=== PATIENT | female | born 1940 | race Caucasian/White ===

== ENCOUNTER 2019-02-23 17:58 | Emergency (ER) | payer MEDICARE, OTHER ==
[2019-02-23 19:16] VITALS: BP 153/78
--- NOTE | 2019-02-23 19:29 | UC ---
Back Pain HPI - HPI Summary HPI Summary: 78 year old female presents with acute low back pain radiating down anterior left for the past two days. Symptoms started when she was putting down her 23# dog and twisted. She denies fall nor trauma. Pain worsened the next day when she when to put down her shampoo in the shower. Had similar symptoms 3-4 years ago. Took tramadol she had at home with slight relief of pain. - History of Current Complaint Chief Complaint: UCBackPain Stated Complaint: LOW BACK PAIN Time Seen by Provider: 02/23/19 19:19 Hx Obtained From: Patient Onset/Duration: Sudden Onset, Lasting Days - 2 days Timing: Constant Pain Intensity: 8 Back Pain: Is Discrete @, Radiates To - down right anterior thigh to knee. Character: Sharp Aggravating Factor(s): Movement Alleviating Factor(s): Other - slight relief from tramadol. Associated Signs And Symptoms: Negative: Swelling, Redness, Bruising, Fever, Weakness, Numbness, Tingling, Flank Pain, Bladder Incontinence, Bowel Incontinence Related History: Similar Episode Dx As - previous episode of sciatica years ago. - Risk Factors Cauda Equina Risk Factors: Negative Epidural Abscess Risk Factors: Negative - Allergies/Home Medications Allergies/Adverse Reactions: Allergies Allergy/AdvReac Type Severity Reaction Status Date / Time No Known Allergies Allergy Verified 02/23/19 19:04 Home Medications: Home Medications Alendronate Sodium 70 mg PO WEEKLY 02/23/19 [History Confirmed 02/23/19] Amlodipine Besylate [Norvasc] 5 mg PO DAILY 02/23/19 [History Confirmed 02/23/19 ] Losartan/Hydrochlorothiazide [Losartan-Hctz 100-12.5 mg Tab] 1 tab PO DAILY 09/12 [History Confirmed 02/23/19] Omeprazole 20 mg PO DAILY 02/23/19 [History Confirmed 02/23/19] Oxybutynin TAB* [Ditropan TAB*] 5 mg PO DAILY 02/23/19 [History Confirmed ] Simvastatin [Zocor] 40 mg PO DAILY 02/23/19 [History Confirmed 02/23/19] PMH/Surg Hx/FS Hx/Imm Hx Previously Healthy: Yes Endocrine History: Other - osteoporosis Cardiovascular History: Hypertension GI/ History: Gastroesophageal Reflux, Other - overactive bladder Cancer History: Breast Cancer - 1996-lumpectomy - Surgical History Surgical History: Yes Surgery Procedure, Year, and Place: 2013--hernia repain. 1996--left breast lumpectomy - Family History Known Family History: Positive: Non-Contributory - Social History Occupation: Retired Lives: Alone Alcohol Use: Rare Substance Use Type: None Smoking Status (MU): Never Smoked Tobacco Review of Systems All Other Systems Reviewed And Are Negative: Yes Constitutional: Negative: Fever, Chills, Fatigue Skin: Negative: Rash, Bruising ENT: Negative: Epistaxis, Sore Throat, Ear Ache, Nasal Discharge, Sinus Congestion Respiratory: Negative: Shortness Of Breath, Cough Cardiovascular: Negative: Palpitations, Chest Pain Gastrointestinal: Negative: Abdominal Pain, Vomiting, Diarrhea, Nausea Genitourinary: Negative: Dysuria, Hematuria, Frequency, Urgency Motor: Negative: Weakness Neurovascular: Negative: Decreased Sensation, Decreased Pulses Musculoskeletal: Negative: Calf Tenderness, Edema, Myalgia Neurological: Negative: Weakness, Paresthesia, Numbness Physical Exam Triage Information Reviewed: Yes Appearance: Well-Appearing, Pain Distress Vital Signs: Initial Vital Signs Temp 98.6 F 02/23/19 19:10 Pulse 67 02/23/19 19:10 Resp 15 02/23/19 19:10 BP 153/78 02/23/19 19:10 Pulse Ox 99 02/23/19 19:10 Vital Signs Reviewed: Yes Eyes: Positive: Conjunctiva Clear ENT: Positive: Normal ENT inspection Neck: Positive: Supple, Nontender, No Lymphadenopathy Respiratory: Positive: Lungs clear, Normal breath sounds. Negative: Crackles, Rhonchi, Wheezing Cardiovascular: Positive: RRR, No Murmur Abdomen Description: Positive: Nontender, Soft. Negative: Distended Musculoskeletal: Positive: Strength Intact, ROM Intact, Other: - pain with right strait leg lift radiating from right lower back into right lower thigh. Neurological: Positive: Alert, Muscle Tone Normal Skin: Negative: Rashes Diagnostics - Radiology No standard instances Radiology Interpretation Completed By: ED Physician Summary of Radiographic Findings: WET READ: NO ACUTE PROCESS, DEGENERATIVE CHANGES LUMBAR SPINE, NO FRACTURE. Back Pain Course/Dx - Differential Dx/Diagnosis Differential Diagnosis/HQI/PQRI: Osteoporosis Provider Diagnosis: Sciatica, right side Discharge - Sign-Out/Discharge Documenting (check all that apply): Patient Departure All imaging exams completed and their final reports reviewed: No - Radiologist review pending. - Discharge Plan Condition: Stable Disposition: HOME Prescriptions: Cyclobenzaprine HCl 5 mg PO BEDTIME PRN #10 tablet MDD ONE PRN Reason: Spasms Tramadol HCl 50 mg PO QID PRN #20 tablet MDD 4 tabs PRN Reason: Pain - Moderate Patient Education Materials: Sciatica (ED) Referrals: Ciara Valentine MD [Primary Care Provider] - Additional Instructions: Continue tramadol as needed for pain. Muscle relaxer at bedtime with caution for dizziness/sleepiness. Physical therapy to improve symptoms. Follow-up with primary care physician if symptoms persist or worsen. - Billing Disposition and Condition Condition: STABLE Disposition: Home
--- NOTE | 2019-02-24 08:38 | UC ---
- Progress Note Progress Note: Final x-ray report reviewed. Lumbar spine x-ray: The vertebra are in normal alignment. The bones are osteopenic. The vertebral body heights are maintained. No fracture is seen. There is mild multilevel degenerative disc disease and moderate facet arthropathy from L3-L4 through L5-S1. IMPRESSION: 1. No displaced fracture by radiograph. 2. Osteopenia. 3. Multilevel degenerative changes as above. This is consistent with a wet read No change in plan Course/Dx - Diagnoses Provider Diagnoses: Sciatica, right side Discharge - Sign-Out/Discharge Documenting (check all that apply): Post-Discharge Follow Up All imaging exams completed and their final reports reviewed: Yes - Radiologist review pending. - Discharge Plan Condition: Stable Disposition: HOME Prescriptions: Cyclobenzaprine HCl 5 mg PO BEDTIME PRN #10 tablet MDD ONE PRN Reason: Spasms Tramadol HCl 50 mg PO QID PRN #20 tablet MDD 4 tabs PRN Reason: Pain - Moderate Patient Education Materials: Sciatica (ED) Referrals: Ciara Valentine MD [Primary Care Provider] - Additional Instructions: Continue tramadol as needed for pain. Muscle relaxer at bedtime with caution for dizziness/sleepiness. Physical therapy to improve symptoms. Follow-up with primary care physician if symptoms persist or worsen. - Billing Disposition and Condition Condition: STABLE Disposition: Home
== END 2019-02-23 20:25 | disposition home or self-care (01) ==
LOC: UCCORT 17:58
DX: M54.31 Sciatica, right side (principal); I10 Essential (primary) hypertension; M81.0 Age-related osteoporosis without current pathological fracture; K21.9 Gastro-esophageal reflux disease without esophagitis; Z85.3 Personal history of malignant neoplasm of breast
CPT/HCPCS: 72110; 99212; G0463